=== PATIENT | male | born 1985 | race Caucasian/White ===

== ENCOUNTER 2018-02-26 12:31 | Emergency (ER) | payer BC, SELFPAY ==
[2018-02-26] MEDS ORDERED: cefTRIAXone\\ROCEPHIN 250 MG VIAL ONE (13:17)
[2018-02-26] MEDS ORDERED: Azithromycin 250 MG TAB ONE (13:17)
[2018-02-26] MEDS ORDERED: Lidocaine 1% PF 5 ML VIAL ONE (13:17)
== END 2018-02-26 13:48 | disposition home or self-care (01) ==
LOC: ERS 12:31
DX: Z20.2 Contact with and (suspected) exposure to infections with a predominantly sexual mode of transmission (principal); E78.5 Hyperlipidemia, unspecified; I10 Essential (primary) hypertension
CPT/HCPCS: 96372; J0696; J2001

== ENCOUNTER 2019-06-20 15:18 | Outpatient (CLI) | payer OTHER ==
--- NOTE | 2019-06-20 15:39 | RAD ---
XR Lumbar Spine 2 Or 3 View: 06/20/2019 12:00 AM CLINICAL INDICATION: Disability exam COMPARISON: None. FINDINGS: Fracture:No fracture. Arthropathy:Mild endplate degenerative changes. Incidental findings:None of significance. IMPRESSION: 1. No acute osseous abnormality.
== END 2019-06-20 15:19 | disposition home or self-care (01) ==
LOC: BICRAD 15:18
PROVIDERS: ATTEND Internal Medicine
DX: Z02.71 Encounter for disability determination (principal)
CPT/HCPCS: 72100

== ENCOUNTER 2020-02-01 17:37 | Emergency (ER) | payer SELFPAY | END 2020-02-01 18:00 | disposition left against medical advice (07) | LOC: ERS 17:37 | DX: Z53.21 Procedure and treatment not carried out due to patient leaving prior to being seen by health care provider (principal) | CPT/HCPCS: 93005 ==

== ENCOUNTER 2024-04-04 17:03 | Emergency (ER) | payer OTHER, SELFPAY | END 2024-04-04 18:37 | disposition home or self-care (01) | LOC: ERS 17:03 | DX: L08.9 Local infection of the skin and subcutaneous tissue, unspecified (principal); I10 Essential (primary) hypertension | CPT/HCPCS: 87070; 87077; 87186; 87205; 99283 ==

== ENCOUNTER 2024-04-20 19:54 | Inpatient (IN) | payer OTHER ==
[~2024-04-20 19:54] MED LIST: Iopamidol-370 76% 500 ML MDV (1 ML CHARGE) ONE
[2024-04-20] MEDS ORDERED: EPINEPHrine 1 MG/ML VIAL ONE (19:57)
[2024-04-20] MEDS ORDERED: LORazepam 2 MG/ML SYR.(CARPUJECT) ONE ×2 (20:05→21:04)
[2024-04-20] MEDS ORDERED: Albuterol 2.5 MG (3 mL) NEB ONE (21:06)
[2024-04-20] MEDS ORDERED: methylPREDNISolone Sod Succ/PF 125 MG/2 ML VIAL ONE (22:15)
[2024-04-20 22:39] LABS: #Basophils Less than 0.03 10x3/uL (0.0-0.2); #Eosinphils Less than 0.03 10x3/uL (0.0-0.7); %Basophils 0.1 % (0.0-1.0); %Eosinophils 0.1 % (0.0-10.0); %Lymphocytes 2.5 % (21.0-51.0); %Monocytes 4.7 % (0.0-10.0); %Neutrophils 92.2 % (42.0-75.0); Hematocrit 41.2 % (42.0-52.0); Mean Corpuscular Hemoglobin 30.8 pg (27.0-31.0); Mean Corpuscular Volume 90.5 fL (78.0-98.0); Mean Platelet Volume 9.7 fL (7.4-10.4); Platelet Count 202 10x3/uL (130-400); RBC Distribution Width 14.6 % (11.5-14.5); Red Blood Cell (RBC) Count 4.55 mill/uL (4.70-6.10)
[2024-04-20] MEDS ORDERED: diphenhydrAMINE 50 MG/ML VIAL ONE (23:01)
[2024-04-20 23:19] LABS: ALT (SGPT) 17 U/L (8-55); AST (SGOT) 19 U/L (5-34); Albumin 2.6 g/dL (3.5-5.0); Alkaline Phosphatase 84 U/L (40-110); Anion Gap 19 mmol/L (10-20); BUN (Urea Nitrogen) 7 mg/dL (8.9-20.6); Bilirubin, Total 0.4 mg/dL (0.2-1.2); Calc. Creatinine Clearance 0 mL/min (70-130); Calcium 7.8 mg/dL (7.8-10.44); Carbon Dioxide 13 mmol/L (22-29); Chloride 112 mmol/L (98-107); Estimated GFR 58; Globulin 3.1 g/dL (2.4-3.5); Glucose 299 mg/dL (70-105); Potassium 3.7 mmol/L (3.5-5.1); Protein, Total 5.7 g/dL (6.0-8.3); Sodium 140 mmol/L (136-145)
[2024-04-20] MEDS ORDERED: Lactated Ringer's 1,000 ML IV SCH (23:41)
[2024-04-21 00:05] LABS: Bacteria/HPF None Seen HPF (None Seen); Bilirubin Negative (Negative); Blood, Urine Negative (Negative); CAUTI Indications for Culture Alt mental st,lethar; Clarity Clear (Clear); Glucose, Urine (Dipstick) Greater than 1000 mg/dL (Negative); Ketone, Urine Trace mg/dL (Negative); Leukocyte 25 Leu/uL (Negative); Nitrite Negative (Negative); Protein, Urine (Dipstick) 10 mg/dL (Neg-Trace); RBC/HPF None Seen HPF (0-3); Specific Gravity, Urine 1.027 (1.002-1.036); Squamous Epithelial None Seen HPF (0-3); Urobilinogen Normal mg/dL (Less than 2)
[2024-04-21 00:08] LABS: Urine Culture Reflex No No
[2024-04-21] MEDS ORDERED: Ipratropium/Albuterol 3 ML NEB NEB PRN (00:16)
[2024-04-21] MEDS: hydrOXYzine 25 MG/ML VIAL IM SCH (00:21)
[2024-04-21] MEDS: Lactated Ringer's 1,000 ML IV SCH ×2 (00:22→05:29)
[2024-04-21] MEDS: NOREPINEPHRINE 8 MG/250 ML-D5W 250 ML IVPB SCH (00:34)
[2024-04-21] MEDS: Sodium Bicarbonate 75 MEQ in Sodium Chloride 0.45% 1,000 ML IV SCH ×2 (00:39→02:01)
[2024-04-21] MEDS: Lorazepam 2 MG/ML VIAL SLOW IVP PRN (01:44)
[2024-04-21] MEDS ORDERED: Glucagon 1 MG/ML KIT IM PRN (01:49)
[2024-04-21] MEDS ORDERED: Dextrose 50% Abboject 50 ML SYRINGE SLOW IVP PRN (01:49)
[2024-04-21] MEDS ORDERED: Dextrose 5% in Water 1,000 ML IV PRN (01:49)
[2024-04-21] MEDS: Lorazepam 2 MG/ML VIAL SLOW IVP SCH ×2 (02:02→19:12)
[2024-04-21 02:28] LABS: Lactic Acid 4.1 mmol/L (0.5-2.2)
[2024-04-21] MEDS: HumaLOG 300 UNITS/3 ML VIAL SC PRN (03:46)
[2024-04-21 04:40] LABS: #Basophils Less than 0.03 10x3/uL (0.0-0.2); #Eosinphils Less than 0.03 10x3/uL (0.0-0.7); %Basophils 0.1 % (0.0-1.0); %Lymphocytes 4.8 % (21.0-51.0); %Monocytes 3.5 % (0.0-10.0); %Neutrophils 90.6 % (42.0-75.0); Hematocrit 41.1 % (42.0-52.0); Hemoglobin 14.1 g/dL (14.0-18.0); Mean Corpuscular HGB CONC 34.3 g/dL (32.0-36.0); Mean Corpuscular Hemoglobin 30.6 pg (27.0-31.0); Mean Corpuscular Volume 89.2 fL (78.0-98.0); Mean Platelet Volume 10.2 fL (7.4-10.4); Platelet Count 226 10x3/uL (130-400); RBC Distribution Width 14.5 % (11.5-14.5); Red Blood Cell (RBC) Count 4.61 mill/uL (4.70-6.10)
[2024-04-21 05:10] LABS: ALT (SGPT) 15 U/L (8-55); AST (SGOT) 28 U/L (5-34); Albumin 2.8 g/dL (3.5-5.0); Alkaline Phosphatase 90 U/L (40-110); Anion Gap 9 mmol/L (10-20); BUN (Urea Nitrogen) 8 mg/dL (8.9-20.6); Bilirubin, Total 0.5 mg/dL (0.2-1.2); Calc. Creatinine Clearance 104 mL/min (70-130); Calcium 8.1 mg/dL (7.8-10.44); Carbon Dioxide 22 mmol/L (22-29); Chloride 112 mmol/L (98-107); Estimated GFR 68; Globulin 3.2 g/dL (2.4-3.5); Glucose 104 mg/dL (70-105); Potassium 4.1 mmol/L (3.5-5.1); Sodium 139 mmol/L (136-145)
[2024-04-21 05:11] LABS: Hemoglobin A1c 4.9 % (4.0-6.0)
[2024-04-21] MEDS: methylPREDNISolone Sod Succ/PF 125 MG/2 ML VIAL IVP SCH (05:27)
[2024-04-21] MEDS: diphenhydrAMINE 50 MG CAP PO SCH (06:12)
[2024-04-21 08:32] LABS: Lactic Acid 1.1 mmol/L (0.5-2.2)
[2024-04-21] MEDS: Famotidine/PF 20 mg/2ml Vial SLOW IVP SCH (10:39)
[2024-04-21] MEDS: Acetaminophen 325 MG TAB PO PRN (11:53)
[2024-04-21 13:15] LABS: Chlam.trachomatis by PCR,Urine Not Detected (NotDetected); GC N.gonorrhoeae PCR,UrineVOID DETECTED (NotDetected)
[2024-04-21 17:42] VITALS: BP 127/70
[2024-04-21] MEDS: levETIRAcetam 500 MG (5 mL) VIAL SLOW IVP SCH (19:12)
[2024-04-21 20:41] LABS: #Basophils Less than 0.03 10x3/uL (0.0-0.2); #Eosinphils Less than 0.03 10x3/uL (0.0-0.7); %Basophils 0.1 % (0.0-1.0); %Lymphocytes 8.1 % (21.0-51.0); %Monocytes 3.8 % (0.0-10.0); %Neutrophils 87.7 % (42.0-75.0); Hematocrit 41.1 % (42.0-52.0); Hemoglobin 14.3 g/dL (14.0-18.0); Mean Corpuscular HGB CONC 34.8 g/dL (32.0-36.0); Mean Corpuscular Hemoglobin 30.8 pg (27.0-31.0); Mean Corpuscular Volume 88.6 fL (78.0-98.0); Mean Platelet Volume 9.8 fL (7.4-10.4); Platelet Count 197 10x3/uL (130-400); Red Blood Cell (RBC) Count 4.64 mill/uL (4.70-6.10)
[2024-04-21 20:54] LABS: Lactic Acid 1.1 mmol/L (0.5-2.2)
[2024-04-21] MEDS ORDERED: levETIRAcetam 500 MG TAB PO SCH (21:00)
[2024-04-21 21:09] LABS: CK (CPK) 345 U/L (30-200)
[2024-04-21 21:18] LABS: Anion Gap 12 mmol/L (10-20); BUN (Urea Nitrogen) 11 mg/dL (8.9-20.6); Calc. Creatinine Clearance 115 mL/min (70-130); Calcium 8.2 mg/dL (7.8-10.44); Carbon Dioxide 21 mmol/L (22-29); Chloride 111 mmol/L (98-107); Estimated GFR 79; Glucose 129 mg/dL (70-105); Potassium 4.1 mmol/L (3.5-5.1); Sodium 140 mmol/L (136-145)
[2024-04-21] MEDS: Azithromycin 250 MG TAB PO SCH (21:24)
[2024-04-21] MEDS: Gentamicin 80 MG/2 ML VIAL IM SCH (21:25)
[2024-04-22 04:13] LABS: #Basophils Less than 0.03 10x3/uL (0.0-0.2); #Eosinphils Less than 0.03 10x3/uL (0.0-0.7); %Basophils 0.1 % (0.0-1.0); %Eosinophils 0.1 % (0.0-10.0); %Lymphocytes 11.4 % (21.0-51.0); %Monocytes 5.8 % (0.0-10.0); %Neutrophils 82.1 % (42.0-75.0); Hematocrit 42.9 % (42.0-52.0); Hemoglobin 14.6 g/dL (14.0-18.0); Mean Corpuscular Hemoglobin 30.7 pg (27.0-31.0); Mean Corpuscular Volume 90.1 fL (78.0-98.0); Platelet Count 207 10x3/uL (130-400); Red Blood Cell (RBC) Count 4.76 mill/uL (4.70-6.10)
[2024-04-22 04:21] LABS: ALT (SGPT) 19 U/L (8-55); AST (SGOT) 23 U/L (5-34); Albumin 2.7 g/dL (3.5-5.0); Alkaline Phosphatase 92 U/L (40-110); Anion Gap 14 mmol/L (10-20); BUN (Urea Nitrogen) 11 mg/dL (8.9-20.6); Bilirubin, Total 0.5 mg/dL (0.2-1.2); Calc. Creatinine Clearance 119 mL/min (70-130); Calcium 8.1 mg/dL (7.8-10.44); Carbon Dioxide 18 mmol/L (22-29); Chloride 110 mmol/L (98-107); Estimated GFR 82; Globulin 3.3 g/dL (2.4-3.5); Glucose 130 mg/dL (70-105); Potassium 4.2 mmol/L (3.5-5.1); Sodium 138 mmol/L (136-145)
[2024-04-22 04:59] LABS: HIV (1/2) Antibody/Antigen Reflxed Confirmation (NonReactive); HIV 1/2 INDEX 959.36 S/CO (<1.00)
[2024-04-22] MEDS: levETIRAcetam 500 MG TAB PO SCH (08:27)
[2024-04-22] MEDS: predniSONE 20 MG TAB PO SCH (08:27)
[2024-04-22 10:55] LABS: Syphilis Antibody Nonreactive (Nonreactive)
[2024-04-22] MEDS: Lorazepam 2 MG/ML VIAL SLOW IVP PRN (12:15)
[2024-04-22] MEDS ORDERED: cefTRIAXone\\ROCEPHIN 1 GM in Sodium Chloride 0.9% 100 ML IVPB SCH (14:45)
[2024-04-22] MEDS: QUEtiapine 25 MG TAB PO SCH (21:52)
[2024-04-22] MEDS: HumaLOG 300 UNITS/3 ML VIAL ONE (21:55)
[2024-04-23 07:34] VITALS: TEMP 97.9
[2024-04-23] MEDS: Ondansetron PF 4 MG/2 ML Vial IVP PRN (14:32)
[2024-04-23 16:36] LABS: %CD4 (Helper/Inducer) 12.7 % (30.8-58.5); Absolute CD4 279 /uL (359-1519); Lymphocytes/Gated Cell Count 2.2 x10E3/uL (0.7-3.1); Total Lymphocyte 15 % (Not Estab.); WBC Total Count 14.4 x10E3/uL (3.4-10.8)
[2024-04-25 10:13] LABS: LOG10 HIV-1 RNA 5.585 (.)
[2024-04-27 07:22] LABS: HIV 1 Antibody Multi-Spot Reactive (Non Reactive); HIV 2 Antibody Multi-Spot Non Reactive (Non Reactive); HIV Multi-spot Interp HIV-1 Positive (.)
== END 2024-04-23 20:00 | disposition left against medical advice (07) | DRG 917 ==
LOC: ERS 19:54 → CCU 21:32 → T4-A 04-21 17:19 → IMCU/EMU 04-21 21:04 → UNDODISIN 04-22 10:13
PROVIDERS: ADMIT Internal Medicine; ATTEND Hospitalist
PROC: 4A00X4Z Measurement of Central Nervous Electrical Activity, External Approach (ICD-10-PCS; principal; 2024-04-21)
DX: T36.8X1A Poisoning by other systemic antibiotics, accidental (unintentional), initial encounter (principal); G92.8 Other toxic encephalopathy; T78.2XXA Anaphylactic shock, unspecified, initial encounter; E87.20 Acidosis, unspecified; F23 Brief psychotic disorder; A54.29 Other gonococcal genitourinary infections; N39.0 Urinary tract infection, site not specified; N17.9 Acute kidney failure, unspecified; Y92.89 Other specified places as the place of occurrence of the external cause; I12.9 Hypertensive chronic kidney disease with stage 1 through stage 4 chronic kidney disease, or unspecified chronic kidney disease; N18.30 Chronic kidney disease, stage 3 unspecified; R73.9 Hyperglycemia, unspecified; L27.0 Generalized skin eruption due to drugs and medicaments taken internally; F44.5 Conversion disorder with seizures or convulsions; E78.5 Hyperlipidemia, unspecified; Z21 Asymptomatic human immunodeficiency virus [HIV] infection status; Z87.820 Personal history of traumatic brain injury; Z88.1 Allergy status to other antibiotic agents; Z88.5 Allergy status to narcotic agent; E78.00 Pure hypercholesterolemia, unspecified; I10 Essential (primary) hypertension; Z20.2 Contact with and (suspected) exposure to infections with a predominantly sexual mode of transmission; Z79.899 Other long term (current) drug therapy
CPT/HCPCS: 36415; 36416; 70450; 71045; 71275; 74177; 80053; 80306; 80307; 81001; 82550; 83036; 83605; 84146; 84484; 85025; 86361; 86701; 86702; 86780; 87086; 87389; 87491; 87536; 87591; 93005; 93010; 94640; 95700; 95711; 95819; 96361; 96365; 96372; 96375; 96376; J0171; J1200; J1580; J1815; J1953; J2060; J2405; J2930; J3410; J3490; J7070; J7120; J7512; J7611; Q9967; S0028

== ENCOUNTER 2024-04-24 22:14 | Inpatient (IN) | payer OTHER ==
[~2024-04-24 22:14] MED LIST changes: +Iopamidol 370 76% 100 ML VIAL ONE; -Iopamidol-370 76% 500 ML MDV (1 ML CHARGE) ONE
[2024-04-24] MEDS ORDERED: levETIRAcetam 500 MG (5 mL) VIAL ONE (22:44)
[2024-04-24 22:51] LABS: Hematocrit 52.1 % (42.0-52.0); Hemoglobin 18.2 g/dL (14.0-18.0); Mean Corpuscular HGB CONC 34.9 g/dL (32.0-36.0); Mean Corpuscular Hemoglobin 30.6 pg (27.0-31.0); Mean Corpuscular Volume 87.7 fL (78.0-98.0); Mean Platelet Volume 10.1 fL (7.4-10.4); Platelet Count 212 10x3/uL (130-400); RBC Distribution Width 14.5 % (11.5-14.5); Red Blood Cell (RBC) Count 5.94 mill/uL (4.70-6.10)
[2024-04-24 23:17] LABS: Acetaminophen Less than 10 mcg/mL (10.0-30.0); Alcohol Less than 10.0 mg/dL (Less than 10); Lipase 45 U/L (8-78); Salicylate Less than 8.0 mg/dL (15.0-30.0)
[2024-04-24 23:18] LABS: ALT (SGPT) 22 U/L (8-55); AST (SGOT) 24 U/L (5-34); Albumin 3.5 g/dL (3.5-5.0); Alkaline Phosphatase 107 U/L (40-110); Anion Gap 17 mmol/L (10-20); BUN (Urea Nitrogen) 11 mg/dL (8.9-20.6); Bilirubin, Total 1.1 mg/dL (0.2-1.2); Calc. Creatinine Clearance 0 mL/min (70-130); Calcium 8.8 mg/dL (7.8-10.44); Carbon Dioxide 22 mmol/L (22-29); Chloride 107 mmol/L (98-107); Eosinophils 1 % (0-10); Estimated GFR 65; Globulin 4.1 g/dL (2.4-3.5); Glucose 87 mg/dL (70-105); Lymphocytes 11 % (21-51); Monocytes 10 % (0-10); Neutrophil 53 % (42-75); Nucleated RBC (Manual Ct) 1 % (0); Platelet Adequacy Comment Platelets Normal; Polychromasia SLIGHT = 2-3 cells HPF (0-2); Potassium 3.7 mmol/L (3.5-5.1); Protein, Total 7.6 g/dL (6.0-8.3); Reactive Lymphocytes 26 % (0-10); Sodium 142 mmol/L (136-145)
[2024-04-24 23:20] LABS: Troponin I 0.013 ng/mL (< 0.028)
[2024-04-25] MEDS ORDERED: diphenhydrAMINE 50 MG/ML VIAL ONE (00:35)
[2024-04-25] MEDS ORDERED: Heparin 25,000 units/D5W 500 ML IV SCH (01:30)
[2024-04-25] MEDS ORDERED: Ondansetron PF 4 MG/2 ML Vial IVP PRN (01:30)
[2024-04-25] MEDS ORDERED: Acetaminophen 325 MG TAB PO PRN (01:30)
[2024-04-25] MEDS ORDERED: Ondansetron ODT 4 MG TAB SL PRN (01:30)
[2024-04-25] MEDS ORDERED: Heparin 10,000 UNITS/ 10 ML VIAL SLOW IVP SCH ×2 (01:30→10:00)
[2024-04-25 01:33] LABS: PTT 28.3 sec (22.9-36.1); Prothrombin Time 13.1 sec (12.0-14.7)
[2024-04-25] MEDS ORDERED: Acetaminophen 650 MG Suppository PR PRN (02:12)
[2024-04-25] MEDS ORDERED: Lorazepam 2 MG/ML VIAL SLOW IVP PRN (02:22)
[2024-04-25 04:49] LABS: Hematocrit 47.3 % (42.0-52.0); Hemoglobin 16.3 g/dL (14.0-18.0); Mean Corpuscular HGB CONC 34.5 g/dL (32.0-36.0); Mean Corpuscular Hemoglobin 30.5 pg (27.0-31.0); Mean Corpuscular Volume 88.4 fL (78.0-98.0); Mean Platelet Volume 9.9 fL (7.4-10.4); Platelet Count 188 10x3/uL (130-400); RBC Distribution Width 14.2 % (11.5-14.5); Red Blood Cell (RBC) Count 5.35 mill/uL (4.70-6.10)
[2024-04-25 05:06] LABS: Anion Gap 10 mmol/L (10-20); BUN (Urea Nitrogen) 11 mg/dL (8.9-20.6); Calc. Creatinine Clearance 127 mL/min (70-130); Calcium 7.9 mg/dL (7.8-10.44); Carbon Dioxide 22 mmol/L (22-29); Chloride 111 mmol/L (98-107); Estimated GFR 90; Glucose 90 mg/dL (70-105); Potassium 3.6 mmol/L (3.5-5.1); Sodium 139 mmol/L (136-145)
[2024-04-25 05:13] LABS: Anisocytosis SLIGHT = 6-15 cells HPF (0-5); Band 3 % (5-11); Large Platelets 2.9 % (0-5); Lymphocytes 17 % (21-51); Metamyelocyte 2 % (0-0); Monocytes 13 % (0-10); Neutrophil 52 % (42-75); Platelet Adequacy Comment Platelets Normal; Reactive Lymphocytes 13 % (0-10)
[2024-04-25] MEDS ORDERED: levETIRAcetam 500 MG (5 mL) VIAL SLOW IVP SCH (09:00)
[2024-04-25] MEDS ORDERED: traMADol HCl 50 MG TAB ONE (10:52)
[2024-04-25] MEDS: traMADol HCl 50 MG TAB PO PRN (10:58)
[2024-04-25 11:07] LABS: Hematocrit 48.8 % (42.0-52.0); Hemoglobin 17.3 g/dL (14.0-18.0); Platelet Count 185 10x3/uL (130-400)
[2024-04-25] MEDS ORDERED: Ibuprofen 200 MG TAB ONE (13:42)
[2024-04-25] MEDS: Ibuprofen 100 MG/5 ML UDCUP PO SCH (14:14)
[2024-04-25] MEDS ORDERED: Heparin 25,000 units/D5W 500 ML ONE (18:01)
[2024-04-25] MEDS ORDERED: HYDROcodone/Acetaminophen 5/325 mg Tablet ONE (19:43)
[2024-04-25] MEDS: HYDROcodone/Acetaminophen 5/325 mg Tablet PO PRN (19:46)
[2024-04-25 20:45] VITALS: BMI 27.6
[2024-04-25] MEDS: Morphine 2 MG/ML VIAL SLOW IVP PRN (21:18)
[2024-04-26] MEDS: Heparin 25,000 units/D5W 500 ML IVPB SCH (07:48)
[2024-04-26] MEDS: Ondansetron PF 4 MG/2 ML Vial IVP PRN (08:52)
[2024-04-26 13:23] VITALS: BMI 27.6
[2024-04-26] MEDS: Acetaminophen 325 MG TAB PO PRN (15:14)
[2024-04-26 23:13] VITALS: TEMP 97.6
[2024-04-27 08:37] VITALS: BP 127/78
[2024-04-27 09:00] LABS: Hematocrit 51.7 % (42.0-52.0); Hemoglobin 18.1 g/dL (14.0-18.0); Platelet Count 184 10x3/uL (130-400)
[2024-04-27] MEDS: Apixaban 5 MG TAB PO SCH (11:31)
[2024-04-27] MEDS ORDERED: Apixaban 5 MG TAB PO SCH (21:00)
[2024-05-04] MEDS ORDERED: Apixaban 5 MG TAB PO SCH (21:00)
== END 2024-04-27 13:47 | disposition home or self-care (01) | DRG 176 ==
LOC: ERS 22:14 → ERHOLD 04-25 01:27 → 2SE 04-25 20:37
PROVIDERS: ADMIT Student in an Organized Health Care Education/Training Program; ATTEND Internal Medicine
DX: I26.99 Other pulmonary embolism without acute cor pulmonale (principal); B20 Human immunodeficiency virus [HIV] disease; R56.9 Unspecified convulsions; E78.5 Hyperlipidemia, unspecified; I10 Essential (primary) hypertension; W19.XXXA Unspecified fall, initial encounter; Z79.899 Other long term (current) drug therapy
CPT/HCPCS: 36415; 71275; 80048; 80053; 80307; 83605; 83690; 83735; 83880; 84146; 84443; 84484; 85014; 85018; 85025; 85049; 85610; 85730; 93005; 93306; 96374; 96375; J1200; J1644; J1953; J2272; J2405; Q9967